=== PATIENT | female | born 2000 | race Caucasian/White ===

== ENCOUNTER 2022-10-31 14:38 | Emergency (ER) | payer MEDICAID ==
[2022-10-31 14:57] VITALS: BP 116/74
== END 2022-10-31 15:48 | disposition home or self-care (01) ==
LOC: ED 14:38
DX: O99.893 Other specified diseases and conditions complicating puerperium (principal); M94.0 Chondrocostal junction syndrome [Tietze]; Z3A.39 39 weeks gestation of pregnancy

== ENCOUNTER 2024-01-14 17:55 | Emergency (ER) | payer MEDICAID ==
[~2024-01-14] VITALS: Ht 165.1 cm; Wt 159.1 kg
[~2024-01-14 17:55] MED LIST: PAXIL20 M1 PO
[2024-01-14] MEDS ORDERED: LATUDA60 MG PO (18:16)
[2024-01-14] MEDS ORDERED: MINIPRESS1 M1 PO (18:18)
[2024-01-14 18:19] VITALS: BP 141/96
== END 2024-01-14 18:41 | disposition home or self-care (01) ==
LOC: ED 17:55
DX: M79.622 Pain in left upper arm (principal); Z79.3 Long term (current) use of hormonal contraceptives